=== PATIENT | female | born 2000 | race Caucasian/White ===

== ENCOUNTER → 2021-08-13 | Outpatient (CLI) | payer OTHER ==
--- NOTE | 2021-08-13 17:42 | REP ---
INDICATION: PRIMARY AMENORRHEA, ABSENT VAGINAL CANAL. COMPARISON: No comparison study. TECHNIQUE: T1 and T2 weighted scans are obtained with without fat saturation. Axial, oblique axial and oblique coronal images are acquired in addition to sagittal scans. FINDINGS: Sagittal T2 weighted scans in the midline demonstrate T2 hyperintense tissue in the midline between the anus and a urethra consistent with vaginal mucosa. Urinary bladder is unremarkable. Bilateral ovaries are seen, the left ovary somewhat higher in the pelvis than the right. No uterus is identified however consistent with uterine agenesis. This mullerian duct anomaly is often associated with absence of the upper 2/3 of the vagina. No pelvic mass or adenopathy is seen. No free fluid is noted. The left ovary measures 4.9 cm in greatest diameter and contains multiple small follicles. The right ovary measures 5.7 cm in greatest diameter and contains multiple small follicles as well. No free fluid. IMPRESSION: Findings consistent with uterine agenesis. There is a thin stripe of T2 hyperintensity between the urethra and the rectum suggestive of vaginal mucosa. Normal ovaries are present bilaterally. No other abnormality <Electronically signed by Byron Cavazos > 08/13/21 [id number]
== END ==
LOC: M RAD 14:12
PROVIDERS: ATTEND Obstetrics & Gynecology
DX: N91.0 Primary amenorrhea (principal); Q52.0 Congenital absence of vagina